=== PATIENT | female | born 1965 | race Caucasian/White ===

== ENCOUNTER → 2018-07-25 | Outpatient (REF) | LOC: ZLAB.WCH 18:24 | DX: Z01.89 Encounter for other specified special examinations (principal) ==

== ENCOUNTER 2019-09-22 04:27 | Emergency (ER) | payer BC, MEDICARE ==
[~2019-09-22] VITALS: Ht 165.1 cm; Wt 54.5 kg
[2019-09-22 05:06] LABS: COLLECTION METHOD CLEAN CATCH
[2019-09-22 05:15] LABS: BASO % 0.3 % (0.0-2.0); GRAN # 9.9 (1.4-6.5); GRAN % 83.7 % (42.2-75.2); HEMATOCRIT 39.9 % (37.0-47.0); HEMOGLOBIN 13.3 g/dl (12.5-16.0); LYMPH # 1.4 (1.2-3.4); LYMPH % 11.6 % (20.0-51.0); MEAN CELL VOLUME 89 fl (80.0-100.0); MEAN CORPUSCULAR HEMOGLOBIN 30 pg (27.0-31.0); MEAN CORPUSCULAR HGB CONC 33 g/dl (33.0-37.0); MEAN PLATELET VOLUME 10.2 fl (7.4-10.4); MONO # 0.5 (0.1-0.6); MONO % 4.1 % (1.7-9.3); PLATELET COUNT 255 K/mm3 (130-400); REDCELL DISTRIBUTION WIDTH-CV 12.5 % (11.5-14.5)
[2019-09-22 05:17] LABS: MUCOUS Present /lpf; PH 5 (5-8); SQUAMOUS EPITHELIAL 0-2 /hpf; URINE APPEARANCE Hazy; URINE BACTERIA Occasional /hpf; URINE BILIRUBIN Negative (NEGATIVE); URINE BLOOD 2+ (NEGATIVE); URINE COLOR Yellow; URINE GLUCOSE Negative (NEGATIVE); URINE KETONE Trace (NEGATIVE); URINE LEUKOCYTE ESTERASE Trace (NEGATIVE); URINE NITRATE Negative (NEGATIVE); URINE PROTEIN(semi-quant) 1+ (NEGATIVE)
[2019-09-22 05:27] LABS: ALANINE AMINOTRANSFERASE 8 U/L (9-52); ALBUMIN 4.7 gm/dL (3.5-5.0); ALKALINE PHOSPHATASE 64 U/L (50-136); ANION GAP 10 mmol/L (7-16); AST,SGOT 22 U/L (15-37); BILIRUBIN,TOTAL 0.5 mg/dL (0.0-1.0); BLOOD UREA NITROGEN 22 mg/dL (7-17); C-REACTIVE PROTEIN 0.6 mg/dL (0.0-0.9); CALCIUM 10.1 mg/dL (8.4-10.2); CARBON DIOXIDE 26 mmol/L (22-30); CHLORIDE 103 mmol/L (98-107); CREATININE, serum 0.77 (0.52-1.25); GLUCOSE 145 mg/dL (74-106); LIPASE 38 U/L (23-300); POTASSIUM 4.2 mmol/L (3.4-5.0); SODIUM 140 mmol/L (137-145); TOTAL PROTEIN 8.2 gm/dL (6.4-8.2)
[2019-09-22 05:50] LABS: TROPONIN-I < 0.012 ng/mL (0.000-0.035)
[2019-09-22 08:39] VITALS: BP 90/59; PULSE 65; TEMP 98.9
== END 2019-09-22 08:43 | disposition short-term general hospital (02) ==
LOC: COL.ER 04:27
PROVIDERS: Emergency Medicine
DX: K56.609 Unspecified intestinal obstruction, unspecified as to partial versus complete obstruction (principal); F41.9 Anxiety disorder, unspecified; F17.210 Nicotine dependence, cigarettes, uncomplicated; Z90.710 Acquired absence of both cervix and uterus; Z90.89 Acquired absence of other organs
CPT/HCPCS: C9113; J1956; J2405; J3010; J7030; Q9967

== ENCOUNTER 2020-04-07 09:12 | Emergency (ER) | payer BC, MEDICARE ==
[~2020-04-07] VITALS: Ht 165.1 cm; Wt 50.0 kg
[2020-04-07 09:14] VITALS: TEMP 96.8
[2020-04-07 09:55] LABS: BASO % 0.7 % (0.0-2.0); EOS # 0.1 (0.0-0.7); EOS % 1.5 % (0-4.0); GRAN % 73.9 % (42.2-75.2); HEMATOCRIT 41.1 % (37.0-47.0); LYMPH # 1.1 (1.2-3.4); LYMPH % 20.5 % (20.0-51.0); MEAN CELL VOLUME 88 fl (80.0-100.0); MEAN CORPUSCULAR HEMOGLOBIN 30 pg (27.0-31.0); MEAN CORPUSCULAR HGB CONC 34 g/dl (33.0-37.0); MEAN PLATELET VOLUME 10.3 fl (7.4-10.4); MONO # 0.2 (0.1-0.6); PLATELET COUNT 235 K/mm3 (130-400); RED BLOOD COUNT 4.67 M/mm3 (4.10-5.30); REDCELL DISTRIBUTION WIDTH-CV 12.9 % (11.5-14.5)
[2020-04-07 10:00] LABS: INR 0.9 (0.8-3.0); PROTHROMBIN TIME 10.4 SECONDS (9.7-12.8)
[2020-04-07 10:12] LABS: ALANINE AMINOTRANSFERASE 16 U/L (4-34); ALBUMIN 4.5 gm/dL (3.5-5.0); ALKALINE PHOSPHATASE 83 U/L (50-136); ANION GAP 7 mmol/L (7-16); AST,SGOT 30 U/L (15-37); BILIRUBIN,TOTAL 0.4 mg/dL (0.0-1.0); BLOOD UREA NITROGEN 16 mg/dL (7-17); CALCIUM 9.9 mg/dL (8.4-10.2); CARBON DIOXIDE 23 mmol/L (22-30); CHLORIDE 108 mmol/L (98-107); CREATININE, serum 0.86 (0.52-1.25); GLUCOSE 102 mg/dL (74-106); SODIUM 139 mmol/L (137-145); TOTAL PROTEIN 8.2 gm/dL (6.4-8.2)
[2020-04-07 10:13] LABS: C-REACTIVE PROTEIN < 0.5 mg/dL (0.0-0.9)
[2020-04-07 10:21] LABS: TROPONIN-I < 0.012 ng/mL (0.000-0.035)
[2020-04-07 11:10] VITALS: BP 121/71; PULSE 71
== END 2020-04-07 11:35 | disposition short-term general hospital (02) ==
LOC: COL.ER 09:12
PROVIDERS: Emergency Medicine
DX: S00.83XA Contusion of other part of head, initial encounter (principal); I63.9 Cerebral infarction, unspecified; W19.XXXA Unspecified fall, initial encounter
CPT/HCPCS: J2997; J7030; Q9967

== ENCOUNTER → 2020-07-01 | Outpatient (CLI) | payer MEDICARE ==
[~2020-07-01] MED LIST: ASPIRIN 81M81 MG/TA2 PO; ATIVAN 1MG T1 MG/TAB PO; CLARITIN 1010 MG/TAB PO; CYMBALTA 60MG60 MG PO; NEURONTIN600 MG/TAB PO; PRILOSEC10 MG PO; PROVENTIL0.09 MG/A1 IH
== END ==
LOC: COL.RAD 10:19
DX: S12.090A Other displaced fracture of first cervical vertebra, initial encounter for closed fracture (principal); V48.0XXA Car driver injured in noncollision transport accident in nontraffic accident, initial encounter; Z98.1 Arthrodesis status